=== PATIENT | female | born 1960 | race Caucasian/White ===

== ENCOUNTER 2021-11-04 13:30 | Emergency (ER) | payer SELFPAY ==
[~2021-11-04] VITALS: Ht 177.8 cm; Wt 99.7 kg
[~2021-11-04 13:30] MED LIST: HYDR-31; IBP800T
[2021-11-04 13:56] LABS: BASOPHILS # (AUTO) 0.1 10^3/uL (0.0-0.1); BASOPHILS % (AUTO) 1 % (0-10); EOSINOPHILS # (AUTO) 0.2 10^3/uL (0.0-0.3); EOSINOPHILS % (AUTO) 3 % (0-10); HEMATOCRIT 44 % (35-52); HEMOGLOBIN 14.2 g/dL (11.5-16.0); LYMPHOCYTES # (AUTO) 2.8 10^3/uL (1.0-4.0); LYMPHOCYTES % (AUTO) 35 % (12-44); MEAN CORPUSCULAR HEMOGLOBIN 28 pg (25-34); MEAN CORPUSCULAR HGB CONC 33 g/dL (32-36); MEAN CORPUSCULAR VOLUME 87 fL (80-99); MEAN PLATELET VOLUME 11.6 fL (9.0-12.2); MONOCYTES # (AUTO) 0.4 10^3/uL (0.0-1.0); MONOCYTES % (AUTO) 5 % (0-12); NEUTROPHILS # (AUTO) 4.5 10^3/uL (1.8-7.8); NEUTROPHILS % (AUTO) 56 % (42-75); PLATELET COUNT 230 10^3/uL (130-400); WHITE BLOOD COUNT 7.9 10^3/uL (4.3-11.0)
[2021-11-04 14:00] LABS: BILIRUBIN,URINE NEGATIVE (NEGATIVE); CLARITY,URINE CLEAR; COLOR,URINE YELLOW; GLUCOSE, URINE (UA) 3+ (NEGATIVE); KETONES,URINE NEGATIVE (NEGATIVE); LEUKOCYTE ESTERASE ,URINE NEGATIVE (NEGATIVE); NITRITE,URINE NEGATIVE (NEGATIVE); PROTEIN,URINE NEGATIVE (NEGATIVE)
[2021-11-04] MEDS ORDERED: LACTATED RINGERS 1,000 ML IV SCH (14:00)
--- NOTE | 2021-11-04 14:06 | ED General ---
General Chief Complaint: Glucose Problems Stated Complaint: HIGH BLOOD SUGAR Source of Information: Patient Exam Limitations: No Limitations (CARLEY MAYERS APRN) History of Present Illness Date Seen by Provider: Nov 04, 2021 Time Seen by Provider: 14:04 Initial Comments To ER by private vehicle with reports of high blood sugar. This is been ongoing for a few days today up to 450 on her blood sugar at home. She is oral medication controlled. However she states that she has not been taking these since her on . She has been very angry lately because of her 's and her diabetes. She denies nausea vomiting fevers chills. Timing/Duration: 1-2 Days Severity: Moderate Associated Systoms: Denies Symptoms (CARLEY MAYERS APRN) Allergies and Home Medications Allergies Coded Allergies: No Known Allergies (Verified Allergy, Unknown, 01/19/07) Patient Home Medication List Home Medication List Reviewed: Yes (CARLEY MAYERS APRN) Escitalopram Oxalate (Lexapro) 10 Mg Tablet, 10 MG PO DAILY Prescribed by: CARLEY MAYERS on 11/04/21 1516 Ibuprofen (Motrin) 800 Mg Tab, (Reported) Entered as Reported by: HILLARY JEAN on 09/03/10 0119 Metformin HCl (Metformin HCl) 500 Mg Tablet, 500 MG PO BID Prescribed by: CARLEY MAYERS on 11/04/21 1516 Review of Systems Review of Systems Constitutional: see HPI EENTM: see HPI Respiratory: no symptoms reported Cardiovascular: no symptoms reported Genitourinary: no symptoms reported Musculoskeletal: no symptoms reported Skin: no symptoms reported Psychiatric/Neurological: No Symptoms Reported Hematologic/Lymphatic: No Symptoms Reported Immunological/Allergic: no symptoms reported (CARLEY MAYERS APRN) Past Szuvclj-Uobtes-Hpnfmb Hx Past Medical History Reproductive Disorders: No (CARLEY MAYERS APRN) Physical Exam Vital Signs Vital Signs - First Documented 11/04/21 13:45 Temp 35.7 Pulse 92 Resp 26 B/P (MAP) 157/97 (117) Pulse Ox 97 O2 Delivery Room Air (DAVE DELGADILLO MD) Vital Signs Capillary Refill : (CARLEY MAYERS APRN) Height, Weight, BMI Height: '" Weight: lbs. oz. kg; BMI Method: General Appearance: No Apparent Distress, WD/WN Eyes: Bilateral Eye Normal Inspection, Bilateral Eye PERRL, Bilateral Eye EOMI HEENT: PERRL/EOMI, TMs Normal Neck: Full Range of Motion, Normal Inspection Respiratory: Lungs Clear, Normal Breath Sounds, No Accessory Muscle Use, No Respiratory Distress Cardiovascular: Regular Rate, Rhythm, Normal Peripheral Pulses Gastrointestinal: Normal Bowel Sounds, Non Tender, Soft Extremity: Normal Capillary Refill, Normal Inspection Neurologic/Psychiatric: Alert, Oriented x3 Skin: Normal Color, Warm/Dry (CARLEY MAYERS APRN) Progress/Results/Core Measures Suspected Sepsis SIRS Temperature: Pulse: Respiratory Rate: Laboratory Tests 11/04/21 13:45: White Blood Count 7.9 Blood Pressure / Mean: Laboratory Tests 11/04/21 13:45: Creatinine 1.06, Platelet Count 230, Total Bilirubin 0.7 (CARLEY MAYERS APRN) Results/Orders Lab Results Laboratory Tests Test 11/04/21 13:44 11/04/21 13:45 11/04/21 13:57 11/04/21 15:25 Range/Units Glucometer 412 *H 368 H 70-110 MG/DL White Blood Count 7.9 4.3-11.0 10^3/uL Red Blood Count 5.04 3.80-5.11 10^6/uL Hemoglobin 14.2 11.5-16.0 g/dL Hematocrit 44 35-52 % Mean Corpuscular Volume 87 80-99 fL Mean Corpuscular Hemoglobin 28 25-34 pg Mean Corpuscular Hemoglobin Concent 33 32-36 g/dL Red Cell Distribution Width 13.2 10.0-14.5 % Platelet Count 230 130-400 10^3/uL Mean Platelet Volume 11.6 9.0-12.2 fL Immature Granulocyte % (Auto) 0 % Neutrophils (%) (Auto) 56 42-75 % Lymphocytes (%) (Auto) 35 12-44 % Monocytes (%) (Auto) 5 0-12 % Eosinophils (%) (Auto) 3 0-10 % Basophils (%) (Auto) 1 0-10 % Neutrophils # (Auto) 4.5 1.8-7.8 10^3/uL Lymphocytes # (Auto) 2.8 1.0-4.0 10^3/uL Monocytes # (Auto) 0.4 0.0-1.0 10^3/uL Eosinophils # (Auto) 0.2 0.0-0.3 10^3/uL Basophils # (Auto) 0.1 0.0-0.1 10^3/uL Immature Granulocyte # (Auto) 0.0 0.0-0.1 10^3/uL Sodium Level 132 L 135-145 MMOL/L Potassium Level 3.9 3.6-5.0 MMOL/L Chloride Level 96 L 98-107 MMOL/L Carbon Dioxide Level 22 21-32 MMOL/L Anion Gap 14 5-14 MMOL/L Blood Urea Nitrogen 16 7-18 MG/DL Creatinine 1.06 0.60-1.30 MG/DL Estimat Glomerular Filtration Rate 53 BUN/Creatinine Ratio 15 Glucose Level 533 *H 70-105 MG/DL Calcium Level 9.7 8.5-10.1 MG/DL Corrected Calcium 9.7 8.5-10.1 MG/DL Total Bilirubin 0.7 0.1-1.0 MG/DL Aspartate Amino Transf (AST/SGOT) 19 5-34 U/L Alanine Aminotransferase (ALT/SGPT) 23 0-55 U/L Alkaline Phosphatase 90 40-136 U/L Total Protein 7.8 6.4-8.2 GM/DL Albumin 4.0 3.2-4.5 GM/DL Beta-Hydroxybutyrate (Chem panel) 0.19 0.00-0.27 MMOL/L Urine Color YELLOW Urine Clarity CLEAR Urine pH 6.0 5-9 Urine Specific Binger <=1.005 1.016-1.022 Urine Protein NEGATIVE NEGATIVE Urine Glucose (UA) 3+ H NEGATIVE Urine Ketones NEGATIVE NEGATIVE Urine Nitrite NEGATIVE NEGATIVE Urine Bilirubin NEGATIVE NEGATIVE Urine Urobilinogen 0.2 < = 1.0 MG/DL Urine Leukocyte Esterase NEGATIVE NEGATIVE Urine RBC (Auto) NEGATIVE NEGATIVE Urine RBC NONE /HPF Urine WBC NONE /HPF Urine Squamous Epithelial Cells 0-2 /HPF Urine Crystals NONE /LPF Urine Bacteria NEGATIVE /HPF Urine Casts NONE /LPF Urine Mucus NEGATIVE /LPF Urine Culture Indicated NO (DAVE DELGADILLO MD) Medications Given in ED Current Medications Medications Dose Ordered Sig/Uriah Route Start Time Stop Time Status Last Admin Dose Admin Insulin Human Regular 6 unit ONCE ONCE IV 11/04/21 14:45 11/04/21 14:46 DC 11/04/21 14:47 6 UNIT Lorazepam 1 mg ONCE ONCE IVP 11/04/21 14:15 11/04/21 14:16 DC 11/04/21 14:11 1 MG (DAVE DELGADILLO MD) Vital Signs/I&O 11/04/21 11/04/21 13:45 15:27 Temp 35.7 Pulse 92 88 Resp 26 20 B/P (MAP) 157/97 (117) 143/105 Pulse Ox 97 96 O2 Delivery Room Air Room Air (DAVE DELGADILLO MD) Vital Signs/I&O Capillary Refill : (CARLEY MAYERS APRN) Departure Communication (Admissions) 1514-she is feeling better at this time. Appreciative of her care. We will get her sugar down, then discharged home. I did confirm with her that she would take the Lexapro for depression and anxiety and she is interested in starting this. She is not suicidal. I asked if she would take Metformin if I sent in a new prescription for it, she was previously on that. She states that she will restart it. (CARLEY MAYERS APRN) Impression Primary Impression: Hyperglycemia Disposition: 01 HOME, SELF-CARE Condition: Stable Departure-Patient Inst. Decision time for Depature: 14:33 (CARLEY MAYERS APRN) Referrals: [facility] [place] Primary Care Physician Patient Instructions: Type 2 Diabetes (DC) Add. Discharge Instructions: 1. Restart your medications. Return to ER for any concerns. Follow-up with your doctor next week. All discharge instructions reviewed with patient and/or family. Voiced understanding. Scripts Metformin HCl (Metformin HCl) 500 Mg Tablet 500 MG PO BID, #60 TAB Prov: CARLEY MAYERS APRN 11/04/21 Escitalopram Oxalate (Lexapro) 10 Mg Tablet 10 MG PO DAILY, #30 TAB 2 Refills Prov: CARLEY MAYERS APRN 11/04/21 ATTENDING PHYSICIAN NOTE: I was physically present as attending physician in the emergency department during the care of this patient, but I was not directly involved in the decision making or delivery of care for this patient. (DAVE DELGADILLO MD) CARLEY MAYERS APRN Nov 04, 2021 14:05 DAVE DELGADILLO MD Nov 04, 2021 20:19
[2021-11-04 14:08] LABS: BACTERIA,URINE NEGATIVE /HPF; SQUAMOUS EPITHELIAL CELL,UR 0-2 /HPF
[2021-11-04 14:10] LABS: POTASSIUM 3.9 MMOL/L (3.6-5.0)
[2021-11-04 14:11] LABS: CALCIUM 9.7 MG/DL (8.5-10.1)
[2021-11-04 14:12] LABS: TOTAL PROTEIN 7.8 GM/DL (6.4-8.2)
[2021-11-04 14:14] LABS: BILIRUBIN,TOTAL 0.7 MG/DL (0.1-1.0)
[2021-11-04] MEDS ORDERED: LORazepam INJ 2 MG/ML (ATIVAN) VIAL IVP ONE (14:15)
[2021-11-04 14:16] LABS: CREATININE SERUM 1.06 MG/DL (0.60-1.30)
[2021-11-04] MEDS ORDERED: inSUlin (REGULAR) HUMAN 1 UNIT/0.01 ML (CHARGE PER UNIT) IV ONE (14:45)
[2021-11-04] MEDS ORDERED: ESCI10TA PO (15:16)
[2021-11-04] MEDS ORDERED: METF-397 PO (15:16)
[2021-11-04 15:27] VITALS: BP 143/105
== END 2021-11-04 15:34 | disposition home or self-care (01) ==
LOC: EDUNIT# 13:30 → ER 13:32
DX: R73.9 Hyperglycemia, unspecified (principal)
CPT/HCPCS: 36415; 80053; 81000; 82010; 82947; 85025